=== PATIENT | male | born 1990 | race Caucasian/White ===

== ENCOUNTER 2017-05-30 16:28 | Emergency (ER) | payer SELFPAY ==
[~2017-05-30] VITALS: Ht 180.3 cm; Wt 72.5 kg
[2017-05-30 16:29] VITALS: BP 164/79; PULSE 97; RESP 20; TEMP 98.5; O2SAT 98
[2017-05-30] MEDS ORDERED: CEPH-460 PO (16:53)
[2017-05-30] MEDS ORDERED: BACT800T5 PO (16:53)
--- NOTE | 2017-05-30 16:58 | PD ---
HPI Chief Complaint: Skin Problem Time Seen by Provider: 16:52 Travel History International Travel<30 days: No Contact w/Intl Traveler<30days: No Traveled to known affect area: No History of Present Illness HPI 26-year-old male here with an area of skin redness to the anterior right knee. He first noticed it 6 days ago. The area is painful, aching, worse with palpation. He does not recall any puncture wounds or bug bites. He does note that he wears pants and notes that his skin sometimes rubs against his pants irritates his skin. He denies any fevers, chills, drainage. His last tetanus vaccination is unknown. No other complaints. PFSH Past Medical History Diabetes: No Diminished Hearing: No Past Surgical History Other Surgery: Yes (Pins put in his wrist after he broke it skate boarding.) Social History Alcohol Use: Yes (BARELY EVER PER PT. ) Tobacco Use: Yes (Smokes cigarettes when he can afford them. ) Substance Use: Yes (Patient indicated that he last smoked THC two weeks ago. ) Allergies-Medications (Allergen,Severity, Reaction): Coded Allergies: No Known Allergies (Verified , 06/29/09) Reported Meds & Prescriptions Reported Meds & Active Scripts Active Keflex (Cephalexin) 500 Mg Cap 500 Mg PO Q6H 10 Days Bactrim DS (Sulfamethoxazole-Trimethoprim) 800-160 Mg Tab 1 Tab PO BID Review of Systems Except as stated in HPI: all other systems reviewed are Neg Physical Exam Narrative GENERAL: Well-nourished male in no acute distress SKIN: Warm and dry. Area of erythema, induration and excoriation to the anterior right knee. CARDIOVASCULAR: Regular rate and rhythm. No murmur appreciated. RESPIRATORY: No accessory muscle use. Clear to auscultation. Breath sounds equal bilaterally. GASTROINTESTINAL: Abdomen soft, non-tender, nondistended. Hepatic and splenic margins not palpable. MUSCULOSKELETAL: No obvious deformities. Skin as noted above with no prepatellar bursal swelling, no right knee joint effusion. The patient may cancel flex and extension of the right knee. There is no inguinal lymphadenopathy. NEUROLOGICAL: Awake and alert. No obvious cranial nerve deficits. Motor grossly within normal limits. Normal speech. Data Data Last Documented VS Vital Signs Date Time Temp Pulse Resp B/P (MAP) Pulse Ox O2 Delivery O2 Flow Rate FiO2 05/30/17 16:29 98.5 97 20 164/79 (107) 98 Room Air Orders Orders Sulfamet-Trimeth Ds 800-160 Mg (Bactrim (05/30/17 17:00) Cephalexin (Keflex) (05/30/17 17:00) Tetanus/Diphtheria Tox Adult (Tetanus/Di (05/30/17 17:00) Ed Discharge Order (05/30/17 16:53) MDM Medical Decision Making Medical Screen Exam Complete: Yes Emergency Medical Condition: Yes Medical Record Reviewed: Yes Differential Diagnosis Cellulitis, erysipelas, abscess, necrotizing fasciitis, prepatellar bursitis, septic arthritis Narrative Course Physical examination is consistent with localized cellulitis. Tetanus status updated. The patient will be started on Bactrim and Keflex. Discussed signs and symptoms or returning to the emergency room. Diagnosis Primary Impression: Cellulitis of right leg Additional Instructions: Medication as prescribed. Warm compresses several times a day 20 minutes at a time. Return for new or worsening symptoms. Med/Other Pt SpecificInfo: Prescription(s) given Scripts Cephalexin (Keflex) 500 Mg Cap 500 MG PO Q6H for Infection for 10 Days, #40 CAP 0 Refills Prov: Willard Stephens MD 05/30/17 Sulfamethoxazole-Trimethoprim (Bactrim DS) 800-160 Mg Tab 1 TAB PO BID for Infection, #20 TAB 0 Refills Prov: Willard Stephens MD 05/30/17 Disposition: 01 DISCHARGE HOME Condition: Stable Jorge A Bazan May 30, 2017 16:58
[2017-05-30] MEDS ORDERED: TETANUS/DIPHTHERIA TOXOID ADULT 0.5 ML VIAL IM ONE (17:00)
[2017-05-30] MEDS ORDERED: SULFAMETHOXAZOLE-TRIMETHOPRIM DS 800-160 MG TAB PO ONE (17:00)
[2017-05-30] MEDS ORDERED: CEPHALEXIN MONOHYDRATE 500 MG CAP PO ONE (17:00)
== END 2017-05-30 17:27 | disposition home or self-care (01) ==
LOC: NEPK 16:28
DX: L03.115 Cellulitis of right lower limb (principal); F17.210 Nicotine dependence, cigarettes, uncomplicated; Z23 Encounter for immunization
CPT/HCPCS: 90471; 90714